=== PATIENT | male | born 1970 | race Hispanic/Latino ===

== ENCOUNTER 2017-05-09 21:02 | Emergency (ER) | payer OTHER ==
[2017-05-09 21:30] VITALS: BP 115/82; PULSE 109; RESP 18; TEMP 98; O2SAT 99
[2017-05-09] MEDS ORDERED: Sodium Chloride 0.9% 1,000 ML IV STA ×2 (22:20→23:19)
--- NOTE | 2017-05-09 22:31 | ED PDOC ---
HPI: Abdomen Time Seen by Provider: 05/09/17 22:29 Chief Complaint (Nursing): Abdominal Pain Chief Complaint (Provider): ABDOMINAL PAIN History Per: Patient (46 Y/O MALE HERE WITH COUGH ASSOCIATED WITH LOW GRADE TEMP TODAY. NOTES VOMITING WITH SMALL SPOTS OF BLOOD THAT PROGRESSED TO COFFEE GROUND EMESIS PER PATIENT. TOOK MOTRIN AT NOON AND AT 6PM. ADMITS EXCESSIVE ETOH INTAKE YESTERDAY. NO PRIOR ABD SURGERIES. ) Past Medical History Reviewed: Historical Data, Nursing Documentation, Vital Signs Vital Signs: Last Vital Signs Temp 98.0 F 05/09/17 21:30 Pulse 109 H 05/09/17 21:30 Resp 18 05/09/17 21:30 BP 115/82 05/09/17 21:30 Pulse Ox 99 05/09/17 22:31 - Family History Family History: States: No Known Family Hx - Home Medications Home Medications: Ambulatory Orders Medication Instructions Recorded Acetaminophen [Acetaminophen Extra 2 tab PO Q4 PRN #24 tablet 05/10/17 Strength] Albuterol HFA [Ventolin HFA 90 2 puff IH [id number] PRN #1 inhaler 05/10/17 mcg/actuation (8 g)] Ondansetron ODT [Zofran ODT] 4 mg PO Q8 PRN #10 odt 05/10/17 Oseltamivir [Tamiflu] 75 mg PO BID #9 cap 05/10/17 Pantoprazole Sodium [Protonix] 40 mg PO DAILY #15 ect 05/10/17 Promethazine/Codeine 5 ml PO Q12 PRN #100 ml 05/10/17 [Codeine/Promethazine 10 MG/5 Ml-6.25 MG/5 Ml] - Allergies Allergies/Adverse Reactions: Allergies Allergy/AdvReac Type Severity Reaction Status Date / Time Penicillins Allergy unknown Verified 05/09/17 21:30 from childhood Review of Systems ROS Statement: Except As Marked, All Systems Reviewed And Found Negative Gastrointestinal: Positive for: Vomiting Physical Exam - Reviewed Nursing Documentation Reviewed: Yes Vital Signs Reviewed: Yes - Physical Exam Appears: Positive for: Well, Non-toxic, No Acute Distress Head Exam: Positive for: ATRAUMATIC, NORMAL INSPECTION, NORMOCEPHALIC Skin: Positive for: Normal Color, Warm, DRY Eye Exam: Positive for: EOMI, Normal appearance, PERRL ENT: Positive for: Normal ENT Inspection Neck: Positive for: Normal, Painless ROM Cardiovascular/Chest: Positive for: Regular Rate, Rhythm Respiratory: Positive for: CNT, Normal Breath Sounds Gastrointestinal/Abdominal: Positive for: Normal Exam, Bowel Sounds, Soft Back: Positive for: Normal Inspection Extremity: Positive for: Normal ROM Neurologic/Psych: Positive for: Alert, Oriented - Laboratory Results Result Diagrams: 05/10/17 01:12 05/09/17 23:05 - ECG O2 Sat by Pulse Oximetry: 99 - Progress ED Course And Treament: ns 1 liter wide open x 2 liters protonix 80 mg iv x 1 dose zofran 4 mg iv x 1 dose flu b positive tamiflu 75mg x 1 dose d/w dr. palma. Will repeat cbc in 3 hours Stool guiac attempted-- sent to lab. not enough stool on card for testing as per lab. Patient will f/u with GI outpatient. No repeat episodes of vomiting in ED. Disposition - Clinical Impression Clinical Impression: Influenza, Gastritis - Patient ED Disposition Is Patient to be Admitted: No - Disposition Referrals: Lazaro Valdovinos MD, PhD [Staff Provider] - Disposition: Routine/Home Disposition Time: 02:30 Condition: FAIR Prescriptions: Albuterol HFA [Ventolin HFA 90 mcg/actuation (8 g)] 2 puff IH [id number] PRN #1 inhaler PRN Reason: Cough Acetaminophen [Acetaminophen Extra Strength] 2 tab PO Q4 PRN #24 tablet PRN Reason: Fever >100.4 F Ondansetron ODT [Zofran ODT] 4 mg PO Q8 PRN #10 odt PRN Reason: Nausea/Vomiting Oseltamivir [Tamiflu] 75 mg PO BID #9 cap Pantoprazole Sodium [Protonix] 40 mg PO DAILY #15 ect Promethazine/Codeine [Codeine/Promethazine 10 MG/5 Ml-6.25 MG/5 Ml] 5 ml PO Q12 PRN #100 ml PRN Reason: Cough Instructions: Influenza (ED), Gastritis (ED), Diet for Ulcers and Gastritis (ED ) Forms: [employer] ([place]ese), [facility] ED School/Work Excuse
[2017-05-09] MEDS ORDERED: Albuterol 0.083% Inhal Sol (2.5 mg/3 mL) UD INH STA ×2 (22:34→23:53)
[2017-05-09] MEDS ORDERED: Albuterol 0.083% Inhal Sol (2.5 mg/3 mL) UD ONE (22:38)
[2017-05-09 23:10] LABS: BASO % 0.1 % (0.0-2.0); EOS % 0.4 % (0.0-4.0); LYMPH # 0.5 K/uL (1.0-4.3); LYMPH % 5.8 % (20.0-40.0); MEAN CELL VOLUME 90.3 fl (80.0-94.0); MEAN CORPUSCULAR HEMOGLOBIN 31.1 pg (27.0-31.0); MEAN CORPUSCULAR HGB CONC 34.5 g/dL (33.0-37.0); MEAN PLATELET VOLUME 7.8 fl (7.2-11.7); MONO # 0.5 K/uL (0.0-0.8); MONO % 6.1 % (0.0-10.0); NEUT # 7.9 K/uL (1.8-7.0); NEUT % 87.6 % (50.0-75.0); NRBC % 0.2 % (0.0-0.0); PLATELET COUNT 195 K/uL (130-400); RBC 5.15 Mil/uL (4.40-5.90); RED CELL DISTRIBUTION WIDTH 14.4 % (11.5-14.5)
[2017-05-09 23:26] LABS: ALB/GLOB RATIO 1.3 (1.0-2.1); ALBUMIN 4.5 g/dL (3.5-5.0); ALT/SGPT 57 U/L (21-72); AST/SGOT 54 U/L (17-59); BLOOD UREA NITROGEN 14 mg/dl (9-20); CALCIUM 10.1 mg/dL (8.4-10.2); GFR AFRICAN-AMERICAN > 60; GFR NON-AFRICAN AMERICAN > 60; LIPASE 62 U/L (23-300)
[2017-05-09 23:52] LABS: PARTIAL THROMBOPLASTIN TIME 29.8 Seconds (25.6-37.1); PROTHROMBIN TIME 11.5 Seconds (9.8-13.1)
[2017-05-10 01:16] LABS: BASO % 0.2 % (0.0-2.0); EOS % 0.4 % (0.0-4.0); HEMOGLOBIN 13.9 g/dL (12.0-18.0); LYMPH # 0.6 K/uL (1.0-4.3); LYMPH % 7.5 % (20.0-40.0); MEAN CELL VOLUME 90.8 fl (80.0-94.0); MEAN CORPUSCULAR HEMOGLOBIN 30.5 pg (27.0-31.0); MEAN CORPUSCULAR HGB CONC 33.6 g/dL (33.0-37.0); MEAN PLATELET VOLUME 7.6 fl (7.2-11.7); MONO # 0.6 K/uL (0.0-0.8); MONO % 7.2 % (0.0-10.0); NEUT # 6.5 K/uL (1.8-7.0); NEUT % 84.7 % (50.0-75.0); RBC 4.56 Mil/uL (4.40-5.90); RED CELL DISTRIBUTION WIDTH 14.5 % (11.5-14.5); WHITE BLOOD COUNT 7.7 K/uL (4.8-10.8)
[2017-05-10 01:51] LABS: LYMPHOCYTE 10 % (20-50); MONOCYTE 2 % (0-10); NEUTROPHIL 88 % (42-75); PLATELET ESTIMATE NORMAL (NORMAL); TOTAL CELLS COUNTED 100
== END 2017-05-10 02:20 | disposition home or self-care (01) ==
LOC: H.ER 21:02
DX: J11.1 Influenza due to unidentified influenza virus with other respiratory manifestations (principal); K29.70 Gastritis, unspecified, without bleeding; Z88.0 Allergy status to penicillin
CPT/HCPCS: 80053; 83690; 85025; 85610; 85730; 87804; 94640; 96374; 96375; 99282; C9113; J2405; J7040